=== PATIENT | male | born 1980 | race Caucasian/White ===

== ENCOUNTER 2022-09-22 20:45 | Emergency (ER) | payer SELFPAY ==
[~2022-09-22] VITALS: Ht 185.4 cm; Wt 87.3 kg
[2022-09-22 21:14] VITALS: BP 150/80
[2022-09-22] MEDS ORDERED: CEPHALEXIN500 M2 PO (23:08)
[2022-09-22] MEDS ORDERED: NORCO 325 MG-51 TA1 PO (23:08)
== END 2022-09-23 00:15 | disposition home or self-care (01) ==
LOC: ED 20:45
DX: S62.522A Displaced fracture of distal phalanx of left thumb, initial encounter for closed fracture (principal); F17.200 Nicotine dependence, unspecified, uncomplicated; Z28.310 Unvaccinated for COVID-19; W27.0XXA Contact with workbench tool, initial encounter